=== PATIENT | female | born 1965 | race African-American/Black ===

== ENCOUNTER → 2018-08-09 | Day surgery (SDC) | payer MEDICARE, MEDICAID ==
[~2018-08-09] VITALS: Ht 162.6 cm; Wt 93.0 kg
[~2018-08-09] MED LIST: AMLO10TA80 PO; ARIP30TA10 PO; BENZ1TAB7 PO; CALC-1059 PO; FENTANYL CITRATE/PF 50MCG/ML 2ML VIAL ONE; FERR325T6 PO; HYDR25TA PO; HYDROMORPHONE HCL/PF 2MG/ML CPJ IV PRN; LABETALOL 5MG/ML SYR 20 MG/4 ML SYRINGE IV PRN; LACTATED RINGERS 1,000 ML IV SCH; MEPERIDINE HCL/PF 25MG/ML CPJ IV PRN; MIDAZOLAM HCL 2 MG/2 ML VIAL ONE; MULT-1116 PO; ONDANSETRON HCL 4MG/2ML INJ IV PRN; RISP3TAB13 PO
[2018-08-09 11:45] LABS: UCG SCREEN NEGATIVE
== END | disposition home or self-care (01) ==
LOC: OR 10:12
PROVIDERS: ATTEND Obstetrics & Gynecology
DX: C54.1 Malignant neoplasm of endometrium (principal); I10 Essential (primary) hypertension; F84.9 Pervasive developmental disorder, unspecified; F20.9 Schizophrenia, unspecified; E66.01 Morbid (severe) obesity due to excess calories
CPT/HCPCS: 36415; 58558; 81025; 86850; 86900; 86901; 88305; J2250; J3010

== ENCOUNTER 2024-07-03 17:45 | Emergency (ER) | payer MEDICARE, OTHER ==
[~2024-07-03] VITALS: Ht 162.6 cm; Wt 99.8 kg
[~2024-07-03 17:45] MED LIST changes: -ARIP30TA10 PO; +ARIP30TA59 PO; -BENZ1TAB7 PO; +BENZ1TAB78 PO; -FENTANYL CITRATE/PF 50MCG/ML 2ML VIAL ONE; -HYDROMORPHONE HCL/PF 2MG/ML CPJ IV PRN; -LABETALOL 5MG/ML SYR 20 MG/4 ML SYRINGE IV PRN; -LACTATED RINGERS 1,000 ML IV SCH; -MEPERIDINE HCL/PF 25MG/ML CPJ IV PRN; -MIDAZOLAM HCL 2 MG/2 ML VIAL ONE; -ONDANSETRON HCL 4MG/2ML INJ IV PRN; -RISP3TAB13 PO; +RISP3TAB76 PO
[2024-07-03 17:52] VITALS: BP 138/80; PULSE 76; RESP 16; TEMP 37.1; O2SAT 98
[2024-07-03 20:30] LABS: BASOPHILS % 0.7 % (0.0-2.0); EOSINOPHILS % 2.2 % (0.0-5.0); HEMATOCRIT. 39.9 % (36.0-48.0); HEMOGLOBIN. 13.4 g/dL (12.0-16.0); MEAN CORPUSCULAR HEMOGLOBIN 27.5 pg (28.0-32.0); MEAN CORPUSCULAR HGB CONC 33.5 g/dL (31.0-37.0); MEAN PLATELET VOLUME 9.1 fl (7.4-10.4); MONOCYTES % 11.1 % (2.0-8.0); PLATELET 173 x1000/uL (130-400); RED BLOOD CELL COUNT 4.87 mill/uL (4.2-5.4); RED CELL DISTRIBUTION WIDTH 15.3 % (11.6-14.6); WHITE BLOOD COUNT 4.5 x1000/uL (4.5-11.0)
[2024-07-03 20:38] LABS: CHLORIDE 105 mEq/L (98-107); POTASSIUM 3.6 mEq/L (3.5-5.1); SODIUM 143 mEq/L (136-145)
[2024-07-03 20:39] LABS: CALCIUM 9.9 mg/dL (8.7-10.4); CARBON DIOXIDE 31 mEq/L (21-32)
[2024-07-03 20:44] LABS: CREATININE 0.9 mg/dL (0.6-1.0); GLUCOSE 108 mg/dL (70-105); UREA NITROGEN BLOOD 10 mg/dL (9-23)
[2024-07-03 20:45] LABS: ETHANOL BLOOD < 10 mg/dL (<10)
[2024-07-03 20:46] LABS: ACETAMINOPHEN < 2 ug/mL (10-30)
== END 2024-07-03 21:30 | disposition home or self-care (01) ==
LOC: ER 17:45
DX: T50.901A Poisoning by unspecified drugs, medicaments and biological substances, accidental (unintentional), initial encounter (principal); I10 Essential (primary) hypertension; F32.A Depression, unspecified; Z00.00 Encounter for general adult medical examination without abnormal findings; Z79.899 Other long term (current) drug therapy; Z86.59 Personal history of other mental and behavioral disorders; Z98.890 Other specified postprocedural states; Y92.9 Unspecified place or not applicable
CPT/HCPCS: 36415; 80048; 80307; 80320; 80329; 85025; 99283; G0480